=== PATIENT | female | born 1950 | race African-American/Black ===

== ENCOUNTER 2016-11-11 06:21 | Inpatient (IN) | payer MEDICARE, MEDICAID ==
[~2016-11-11] VITALS: Ht 157.5 cm; Wt 71.5 kg
[~2016-11-11 06:21] MED LIST: ACE3T
[2016-11-11] MEDS ORDERED: SODIUM CHLORIDE 0.9% 1,000 ML IV ONE ×2 (06:56→07:49)
[2016-11-11] MEDS ORDERED: HYDROmorphone HCL 2 MG/ML VL IV ONE (07:00)
[2016-11-11] MEDS ORDERED: LIDOCAINE 2%HCL (LOCAL ANESTH.) INJ 20ML MDV ID ONE (07:00)
[2016-11-11] MEDS ORDERED: METOCLOPRAMIDE HCL 5MG/ml INJ 2ml VIAL IV ONE (07:00)
[2016-11-11 08:54] LABS: Basophils # (auto) 0 uL; Basophils % (auto) 0.5 % (0.0-2.0); CONDITION Y; Eosinophils # (auto) 0.1 uL; Eosinophils % (auto) 2.1 % (0.0-7.0); Hematocrit 37.9 % (36.0-46.0); Hemoglobin 12.6 g/dL (12.2-16.2); Lymphocytes # (auto) 1.1 uL; Lymphocytes % (auto) 29.7 % (10.0-50.0); Mean Corpuscular Hemoglobin 32.3 pg (28.0-32.0); Mean Corpuscular Hgb Conc. 33.3 g/dL (32.0-36.0); Mean Corpuscular Volume 96.8 fL (80.0-100.0); Mean Platelet Volume 9.4 fL (7.4-10.4); Monocytes # (auto) 0.3 uL; Neutrophils # (auto) 2.2 uL; Neutrophils % (auto) 59.7 % (37.0-80.0); Platelet Count (auto) 98 10^3/uL (140-450); Red Cell Distribution Width 16.6 % (11.6-16.0); White Blood Cell 3.7 10^3/uL (4.4-10.8)
[2016-11-11 09:13] LABS: Albumin 3.3 g/dL (3.4-5.0); BUN/Creatinine Ratio 17.2; Bilirubin, Total 0.5 mg/dL (0.2-1.0); Calcium 8.4 mg/dL (8.5-10.1); Magnesium 2.2 mg/dL (1.6-2.6); Potassium 3.8 mmol/L (3.5-5.1); Total Protein 7.8 g/dL (6.4-8.2)
[2016-11-11] MEDS ORDERED: SODIUM CHLORIDE 0.9% 1,000 ML IV SCH (09:59)
[2016-11-11] MEDS ORDERED: MORPHINE SULF INJ 2 MG/ML SYRINGE 1ML IV PRN (10:00)
[2016-11-11] MEDS ORDERED: TEMAZEPAM 15 MG CAP PO PRN (10:00)
[2016-11-11] MEDS ORDERED: HYDROcodone-ACET 5/325MG TAB PO PRN (10:00)
[2016-11-11] MEDS ORDERED: ACETAMINOPHEN 500 MG TAB PO PRN (10:00)
[2016-11-11] MEDS ORDERED: ALPRAZolam 0.5 MG TAB PO PRN (10:00)
[2016-11-11] MEDS ORDERED: NITROGLYCERIN 0.4 MG SL TAB SL PRN (10:00)
[2016-11-11] MEDS ORDERED: LACTULOSE 20Gm/30ML SOLN PO PRN (10:00)
[2016-11-11] MEDS ORDERED: PROMETHAZINE HCL 25 MG/ML 1ML IV PRN (10:00)
[2016-11-11 12:11] VITALS: BP 162/75
[2016-11-11 13:21] LABS: Temperature: 23.7 C (20.0-25.0)
[2016-11-11 13:44] LABS: INR 1.1 (0.9-1.15); Partial Thromboplastin Time 28.5 sec (22.64-33.71)
[2016-11-11] MEDS: SODIUM CHLORIDE 0.9% 1,000 ML IV SCH (14:30)
[2016-11-11 17:00] VITALS: BP 151/76
[2016-11-11] MEDS: MORPHINE SULF INJ 2 MG/ML SYRINGE 1ML IV PRN ×2 (17:30→21:27)
[2016-11-11] MEDS: ATORVASTATIN 20 MG TAB PO SCH (21:27)
[2016-11-11 22:00] VITALS: BP 153/86
[2016-11-12] VITALS (8 sets, daily range): BP systolic 151–196; BP diastolic 80–92
[2016-11-12] MEDS: MORPHINE SULF INJ 2 MG/ML SYRINGE 1ML IV PRN ×5 (02:20→23:41)
[2016-11-12 07:16] LABS: Cholesterol 107 mg/dL (< 200); HDL Cholesterol 34 mg/dL (40-59); LDL Cholesterol 75 mg/dL (< 100); Triglycerides 83 mg/dL (< 150)
[2016-11-12 08:17] LABS: Urine RBC None Seen /hpf (0 - 4)
[2016-11-12 08:24] LABS: Urine Bilirubin Negative (Negative); Urine Blood Negative /uL (Negative); Urine Color Yellow (Yellow); Urine Glucose Normal (Normal); Urine Ketone Negative (Negative); Urine Nitrite Negative (Negative); Urine Squamous Epithelial Cell FEW /hpf (<5); Urine Urobilinogen Normal (Negative)
[2016-11-12] MEDS ORDERED: ceFAZolin 1GM/50ML D5W 50 ML IV ONE (09:24)
[2016-11-12] MEDS ORDERED: LIDOCAINE W/ EPINEPHRINE 1 % INJ 30ML ONE (09:44)
[2016-11-12] MEDS ORDERED: BUPIVACAINE W/ EPINEPH 0.25% INJ 50ML MDV ONE (09:44)
[2016-11-12] MEDS ORDERED: LIDOCAINE 1% HCL (LOCAL ANESTH.) INJ 20ML MDV ONE (09:44)
[2016-11-12] MEDS ORDERED: ceFAZolin 1GM VL ONE (09:44)
[2016-11-12] MEDS ORDERED: BUPIVACAINE 0.25% INJ 50ML VIAL ONE (09:44)
[2016-11-12] MEDS: SODIUM CHLORIDE 0.9% 1,000 ML IV SCH ×2 (09:59→14:39)
[2016-11-12] MEDS ORDERED: fentaNYL CITRATE 100 MCG/2 ML VL ONE (10:33)
[2016-11-12] MEDS ORDERED: ROCURONIUM 10MG/ML 10ML VIAL IV ONE (10:38)
[2016-11-12] MEDS ORDERED: MIDAZOLAM HCL 1MG/1ML-2 ML VIAL ONE (11:00)
[2016-11-12] MEDS ORDERED: LIDOCAINE 1% HCL (LOCAL ANESTH.) INJ 20ML MDV IJ ONE (11:00)
[2016-11-12] MEDS ORDERED: HYDROmorphone HCL 2 MG/ML VL IV PRN (11:45)
[2016-11-12] MEDS ORDERED: ONDANSETRON HCL 4 MG/2 ML VIAL IV ONE (11:45)
[2016-11-12] MEDS ORDERED: ePHEDrine SULFATE 50 MG/ML AMP IV PRN (11:45)
[2016-11-12] MEDS: hydrALAZINE HCL 20 MG/ML VL IV PRN ×4 (11:50→21:55)
[2016-11-12] MEDS ORDERED: LISINOPRIL 10 MG TAB PO ONE (14:15)
[2016-11-12] MEDS: DIAZEPAM 2 MG TAB PO PRN ×2 (15:39→23:41)
[2016-11-12] MEDS: ATORVASTATIN 20 MG TAB PO SCH (21:54)
[2016-11-13] MEDS: MORPHINE SULF INJ 2 MG/ML SYRINGE 1ML IV PRN ×4 (03:40→18:22)
[2016-11-13] MEDS: SODIUM CHLORIDE 0.9% 1,000 ML IV SCH ×2 (03:50→18:21)
[2016-11-13 04:55] VITALS: BP 136/100
[2016-11-13 06:23] LABS: Basophils # (auto) 0 uL; Basophils % (auto) 0.2 % (0.0-2.0); CONDITION Y; Eosinophils # (auto) 0.1 uL; Eosinophils % (auto) 1.8 % (0.0-7.0); Hematocrit 38.4 % (36.0-46.0); Hemoglobin 12.9 g/dL (12.2-16.2); Lymphocytes # (auto) 1.3 uL; Lymphocytes % (auto) 32.5 % (10.0-50.0); Mean Corpuscular Hemoglobin 32.6 pg (28.0-32.0); Mean Corpuscular Hgb Conc. 33.7 g/dL (32.0-36.0); Mean Corpuscular Volume 96.9 fL (80.0-100.0); Monocytes # (auto) 0.4 uL; Monocytes % (auto) 9.9 % (0.0-12.0); Neutrophils # (auto) 2.2 uL; Neutrophils % (auto) 55.6 % (37.0-80.0); Platelet Count (auto) 94 10^3/uL (140-450); Red Cell Distribution Width 16.3 % (11.6-16.0)
[2016-11-13 07:03] LABS: BUN/Creatinine Ratio 19.1; Calcium 8.7 mg/dL (8.5-10.1); Potassium 3.7 mmol/L (3.5-5.1)
[2016-11-13 08:00] VITALS: BP 147/85
[2016-11-13] MEDS: DIAZEPAM 2 MG TAB PO PRN ×2 (08:46→18:22)
[2016-11-13 09:00] VITALS: BP 147/85
[2016-11-13] MEDS ORDERED: LISINOPRIL 10 MG TAB PO SCH (10:00)
[2016-11-13 13:00] VITALS: BP 186/90
[2016-11-13] MEDS: hydrALAZINE HCL 20 MG/ML VL IV PRN ×2 (14:03→16:19)
[2016-11-13 16:30] VITALS: BP 158/87
[2016-11-13 16:52] VITALS: BP 167/83
== END 2016-11-13 18:57 | disposition home or self-care (01) | DRG 511 ==
LOC: ER 06:21 → TELE 06:22 → TELE-E-ADS 11:18 → TELE-CENTR 14:44
PROVIDERS: ADMIT Internal Medicine; ATTEND Internal Medicine
PROC: 0RSNXZZ Reposition Right Wrist Joint, External Approach (ICD-10-PCS; principal; 2016-11-11)
PROC: 0PSH04Z Reposition Right Radius with Internal Fixation Device, Open Approach (ICD-10-PCS; 2016-11-12)
PROC: 0PSK04Z Reposition Right Ulna with Internal Fixation Device, Open Approach (ICD-10-PCS; 2016-11-12)
DX: S52.611A Displaced fracture of right ulna styloid process, initial encounter for closed fracture (principal); E44.1 Mild protein-calorie malnutrition; I10 Essential (primary) hypertension; S52.501A Unspecified fracture of the lower end of right radius, initial encounter for closed fracture; F17.210 Nicotine dependence, cigarettes, uncomplicated; G47.00 Insomnia, unspecified; G47.10 Hypersomnia, unspecified; K59.00 Constipation, unspecified; F41.9 Anxiety disorder, unspecified; G47.30 Sleep apnea, unspecified; G51.0 Bell's palsy; W18.39XA Other fall on same level, initial encounter; Y93.89 Activity, other specified; Y99.8 Other external cause status; Z86.73 Personal history of transient ischemic attack (TIA), and cerebral infarction without residual deficits; Z80.3 Family history of malignant neoplasm of breast; Z80.42 Family history of malignant neoplasm of prostate; Z88.6 Allergy status to analgesic agent; Z88.8 Allergy status to other drugs, medicaments and biological substances; Z79.899 Other long term (current) drug therapy; Z90.49 Acquired absence of other specified parts of digestive tract; Z98.51 Tubal ligation status; Z87.81 Personal history of (healed) traumatic fracture; Y92.000 Kitchen of unspecified non-institutional (private) residence as the place of occurrence of the external cause; Z68.28 Body mass index [BMI] 28.0-28.9, adult
CPT/HCPCS: 25605; 36415; 70450; 71020; 73090; 73100; 76000; 80048; 80053; 80061; 80307; 81001; 82550; 82607; 82746; 83735; 84443; 85025; 85610; 85652; 85730; 87086; 93005; 93306; 93886; 95819; 96361; 96374; 96375; J0690; J2001; J2250; J3490

== ENCOUNTER 2018-04-04 07:02 | Emergency (ER) | payer OTHER, MEDICAID ==
[~2018-04-04] VITALS: Ht 157.5 cm; Wt 65.8 kg
[2018-04-04 07:34] VITALS: BP 177/81
[2018-04-04] MEDS ORDERED: KETOROLAC TROMETH 30 MG/ML 1ML VIAL IM ONE (08:00)
== END 2018-04-04 08:29 | disposition home or self-care (01) ==
LOC: ER 07:02
DX: N64.4 Mastodynia (principal); I10 Essential (primary) hypertension; F17.210 Nicotine dependence, cigarettes, uncomplicated; Z90.49 Acquired absence of other specified parts of digestive tract; Z88.8 Allergy status to other drugs, medicaments and biological substances; Z88.6 Allergy status to analgesic agent; Z79.891 Long term (current) use of opiate analgesic
CPT/HCPCS: 96372; 99283; J1885

== ENCOUNTER 2019-03-14 06:49 | Emergency (ER) | payer OTHER, MEDICAID ==
[~2019-03-14] VITALS: Ht 157.5 cm; Wt 70.3 kg
[2019-03-14 07:01] VITALS: BP 157/67
[2019-03-14] MEDS ORDERED: METHOCARBAMOL 500 MG TAB PO ONE (08:15)
[2019-03-14] MEDS ORDERED: ACETAMINOPHEN 325 MG TAB PO ONE (08:15)
== END 2019-03-14 09:19 | disposition home or self-care (01) ==
LOC: EDUNIT# 06:49 → ER 06:49
DX: M62.838 Other muscle spasm (principal); I10 Essential (primary) hypertension; Z88.6 Allergy status to analgesic agent; Z88.8 Allergy status to other drugs, medicaments and biological substances; V89.2XXA Person injured in unspecified motor-vehicle accident, traffic, initial encounter; Y93.I9 Activity, other involving external motion; Y92.410 Unspecified street and highway as the place of occurrence of the external cause; Y99.8 Other external cause status
CPT/HCPCS: 72070

== ENCOUNTER 2020-08-03 17:52 | Emergency (ER) | payer OTHER, MEDICAID ==
[~2020-08-03] VITALS: Ht 177.8 cm; Wt 65.8 kg
[2020-08-03 20:05] VITALS: BP 150/90
== END 2020-08-04 01:14 | disposition left against medical advice (07) ==
LOC: ER 17:52
DX: S80.12XA Contusion of left lower leg, initial encounter (principal); M79.642 Pain in left hand; I10 Essential (primary) hypertension; Z90.49 Acquired absence of other specified parts of digestive tract; Z79.899 Other long term (current) drug therapy; Z88.8 Allergy status to other drugs, medicaments and biological substances; V43.52XA Car driver injured in collision with other type car in traffic accident, initial encounter; Y93.89 Activity, other specified; Y92.89 Other specified places as the place of occurrence of the external cause; Y99.8 Other external cause status
CPT/HCPCS: 73130; 73590

== ENCOUNTER 2023-03-06 08:39 | Emergency (ER) | payer OTHER, MEDICAID ==
[~2023-03-06] VITALS: Ht 165.1 cm; Wt 64.1 kg
[2023-03-06 09:45] VITALS: PULSE 60; RESP 16; TEMP 98.4; O2SAT 95
[2023-03-06 10:34] LABS: Basophils # (auto) 0 10 ^3/uL (0-0.2); Basophils % (auto) 0.5 % (0.0-2.0); Eosinophils # (auto) 0.1 10 ^3/uL (0-0.8); Eosinophils % (auto) 2.5 % (0.0-7.0); Hematocrit 41.3 % (36.0-46.0); Hemoglobin 13.8 g/dL (12.2-16.2); Lymphocytes # (auto) 1.4 10 ^3/uL (0.4-5.4); Mean Corpuscular Hemoglobin 31.7 pg (28.0-32.0); Mean Corpuscular Hgb Conc. 33.4 g/dL (32.0-36.0); Mean Corpuscular Volume 95.1 fL (80.0-100.0); Monocytes # (auto) 0.4 10 ^3/uL (0-1.3); Monocytes % (auto) 8.2 % (0.0-12.0); Neutrophils # (auto) 3.3 10 ^3/uL (1.6-8.6); Neutrophils % (auto) 62.8 % (37.0-80.0); Nucleated Red Blood Cells % 0.1 %; Red Blood Cells 4.34 10^6/uL (4.0-5.20); Red Cell Distribution Width 13.8 % (11.8-14.3); White Blood Cell 5.2 10^3/uL (4.4-10.8)
[2023-03-06 11:11] LABS: Albumin 4.2 g/dL (3.2-4.8); Alkaline Phosphatase 91 U/L (46-116); Anion Gap 6 (5-15); Aspartate Aminotransferase 18 U/L (13-40); BUN/Creatinine Ratio 12.9 (10.0-20.0); Blood Urea Nitrogen 9 mg/dL (9-23); Calcium 9.8 mg/dL (8.5-10.1); Carbon Dioxide 28 mmol/L (20-30); Chloride 103 mmol/L (98-107); Glucose 79 mg/dL (74-106); Potassium 4.6 mmol/L (3.5-5.1); Sodium 137 mmol/L (136-145)
[2023-03-06 11:12] LABS: Bilirubin, Total 0.6 mg/dL (0.2-1.0); Total Protein 7.1 g/dL (5.7-8.2)
[2023-03-06] MEDS ORDERED: METOCLOPRAMIDE HCL 5MG/ml INJ 2ml VIAL IV ONE (11:15)
[2023-03-06] MEDS ORDERED: SODIUM CHLORIDE 0.9% 1,000 ML IVB ONE (11:15)
[2023-03-06 11:18] LABS: Alanine Aminotransferase < 9 U/L (7-40)
[2023-03-06 12:10] LABS: Magnesium 1.9 mg/dL (1.6-2.6)
[2023-03-06 13:00] VITALS: BP 167/79; PULSE 76; RESP 20; O2SAT 99
[2023-03-06] MEDS ORDERED: METO-517 PO (15:54)
[2023-03-06] MEDS ORDERED: SENN1CAP4 PO (15:54)
[2023-03-06 16:06] LABS: Urine Bacteria NONE SEEN /hpf (None Seen); Urine Blood Negative /uL (Negative); Urine Clarity Clear (Clear); Urine Protein, UAD Negative (Negative); Urine Specific Gravity 1.048 (1.001-1.035); Urine Urobilinogen Normal (Negative); Urine WBC <1 /hpf (0 - 5)
[2023-03-06 16:09] LABS: Urine Color STRAW (Yellow)
[2023-03-06] MEDS ORDERED: ESOM40CA83 PO (16:24)
== END 2023-03-06 16:26 | disposition home or self-care (01) ==
LOC: ER 08:39
DX: K29.60 Other gastritis without bleeding (principal); K59.01 Slow transit constipation; K42.9 Umbilical hernia without obstruction or gangrene; R91.8 Other nonspecific abnormal finding of lung field; I10 Essential (primary) hypertension; Z90.49 Acquired absence of other specified parts of digestive tract; Z90.710 Acquired absence of both cervix and uterus; Z98.51 Tubal ligation status; Z88.6 Allergy status to analgesic agent
CPT/HCPCS: 36415; 71046; 74177; 80053; 81001; 83690; 83735; 84484; 85025; 96361; 96374; 99285; J2765; J7030; Q9967